=== PATIENT | male | born 1965 | race Caucasian/White ===

== ENCOUNTER 2024-04-03 00:36 | Inpatient (IN) ==
[2024-04-03] MEDS: Albuterol/Ipratropium NEB.SOL (2.5/0.5 MG) 3 ML NEB.SOLN INH ONE (01:37)
[2024-04-03] MEDS: methylPREDNISolone SOD SUCC 125 mg 2 ML VIAL IV ONE (01:37)
[2024-04-03 01:46] LABS: ABS Basophils 0.1 10^3/uL (0.0-0.1); ABS Eosinophils 0.1 10^3/uL (0.0-0.5); ABS Lymphocytes 1.7 10^3/uL (1.0-4.8); ABS Monocytes 0.3 10^3/uL (0.0-1.1); ABS Neutrophils 3.1 10^3/uL (1.5-7.6); Eosinophil % 1.2 %; Hematocrit 33.2 % (38-53); Hemoglobin 11.1 g/dL (13.2-16.3); Mean Corpuscular Hemoglobin 30.9 pg (27-33); Mean Corpuscular Hgb Conc 33.5 g/dL (31-36); Mean Corpuscular Volume 92.2 fL (80-97); Mean Platelet Volume 7.8 fL (7.5-11.2); Nucleated Red Blood Cells % 0.1 %/100WBC (0.0-0.8); Platelet Count 111 10^3/uL (150-450); Red Cell Distribution Width 16.5 % (12-17); White Blood Count 5.2 10^3/uL (3.6-10.2)
[2024-04-03 01:59] LABS: INR 1.25 (0.83-1.13)
[2024-04-03 02:30] LABS: Albumin 3.1 g/dL (3.2-5.2); Albumin/Globulin Ratio 1.1 (1-3); C Reactive Protein 14.67 mg/L (<8.01); Creatinine, Serum 0.68 mg/dL (0.67-1.17); Globulin 2.7 g/dL (2-4); Potassium 2.5 mmol/L (3.5-5.0); Total Bilirubin 1.2 mg/dL (0.2-1.0); Total Protein 5.8 g/dL (6.4-8.9); eGFR CKD-EPI 109.1 (>60)
[2024-04-03] MEDS: Morphine 4 MG/ML VIAL (1 ml) IV ONE (02:47)
[2024-04-03] MEDS: Potassium EFFERVES 25 meq TAB PO ONE (02:47)
[2024-04-03 03:12] LABS: High Sensitivity Troponin 1 Hr 10 pg/mL (<20)
[2024-04-03] MEDS: Lactated Ringers 1000 ml BAG 1,000 ML IV ONE ×3 (03:44→17:10)
[2024-04-03] MEDS: Iohexol 350 (CONTRAST) 500 ML MDV IV ONE (03:46)
[2024-04-03] MEDS: KCL 20 MEQ/100 ML IVPREMIX 20 MEQ/100 ML BAG IV SCH ×2 (06:00→17:10)
[2024-04-03 06:36] LABS: Magnesium 0.9 mg/dL (1.9-2.7)
[2024-04-03] MEDS: Lactated Ringers SEPSIS* BAG 3,130 ML IV ONE (06:38)
[2024-04-03] MEDS: CALCIUM GLUCONATE 1GM/50ML NS 1 GM/50 ML BAG IV ONE ×3 (06:44→14:47)
[2024-04-03] MEDS: cefTRIAXone 1 gm/50 mL D5W 1 GM/50 ML BAG IV SCH (07:03)
[2024-04-03] MEDS: Magnesium Sulf 4 GM/100 ML IV 4,000 MG/100 ML BAG IVPB ONE ×2 (08:23→14:47)
[2024-04-03 09:16] LABS: Calcium 5.8 mg/dL (8.6-10.3); Creatinine, Serum 0.56 mg/dL (0.67-1.17); Magnesium 0.7 mg/dL (1.9-2.7); Potassium 2.8 mmol/L (3.5-5.0); eGFR CKD-EPI 115.7 (>60)
[2024-04-03] MEDS: Albuterol/Ipratropium NEB.SOL (2.5/0.5 MG) 3 ML NEB.SOLN INH SCH (10:35)
[2024-04-03 10:52] LABS: Phosphorus 3.1 mg/dL (2.5-5.0)
[2024-04-03] MEDS: Albuterol HFA INHALER 8 gm MDI INH SCH (12:08)
[2024-04-03] MEDS ORDERED: Sulfur Hexaflouride MICROSPHR 25 MG VIAL ONE (12:31)
[2024-04-03] MEDS: Enoxaparin 40 MG/0.4 ML SYR SUBCUT SCH (13:05)
[2024-04-03 13:54] LABS: Calcium 6.4 mg/dL (8.6-10.3); Creatinine, Serum 0.69 mg/dL (0.67-1.17); Magnesium 1.4 mg/dL (1.9-2.7); Potassium 2.9 mmol/L (3.5-5.0); eGFR CKD-EPI 108.6 (>60)
[2024-04-03] MEDS: Potassium Chlor 20 meq TAB.ER PO ONE (14:46)
[2024-04-03 16:50] LABS: Calcium 9.1 mg/dL (8.6-10.3); Creatinine, Serum 0.67 mg/dL (0.67-1.17); Magnesium 1.6 mg/dL (1.9-2.7); Potassium 3.1 mmol/L (3.5-5.0); eGFR CKD-EPI 109.6 (>60)
[2024-04-03] MEDS: Sulfur Hexaflouride MICROSPHR 25 MG VIAL IV ONE (23:23)
[2024-04-04 00:13] LABS: Calcium 6.2 mg/dL (8.6-10.3); Creatinine, Serum 0.66 mg/dL (0.67-1.17); Magnesium 1.6 mg/dL (1.9-2.7); Potassium 3.2 mmol/L (3.5-5.0); eGFR CKD-EPI 110.1 (>60)
[2024-04-04] MEDS: CALCIUM GLUCONATE 1GM/50ML NS 1 GM/50 ML BAG IV ONE ×2 (01:12→09:52)
[2024-04-04] MEDS: Potassium Chloride LIQUID 20 MEQ/15 ML LIQUID PO ONE ×2 (01:12→09:08)
[2024-04-04] MEDS: Magnesium Sulf 4 GM/100 ML IV 4,000 MG/100 ML BAG IVPB ONE (01:12)
[2024-04-04 06:41] LABS: Calcium 6.5 mg/dL (8.6-10.3); Creatinine, Serum 0.56 mg/dL (0.67-1.17); Magnesium 2.1 mg/dL (1.9-2.7); Potassium 3.4 mmol/L (3.5-5.0); eGFR CKD-EPI 115.7 (>60)
[2024-04-04 07:26] LABS: Hematocrit 33.8 % (38-53); Hemoglobin 11.4 g/dL (13.2-16.3); Mean Corpuscular Hemoglobin 31.4 pg (27-33); Mean Corpuscular Hgb Conc 33.7 g/dL (31-36); Mean Corpuscular Volume 93.2 fL (80-97); Mean Platelet Volume 8.1 fL (7.5-11.2); Platelet Count 98 10^3/uL (150-450); Red Blood Count 3.63 10^6/uL (4.06-5.63); Red Cell Distribution Width 16.2 % (12-17); White Blood Count 8.6 10^3/uL (3.6-10.2)
[2024-04-04] MEDS: cefTRIAXone 1 gm/50 mL D5W 1 GM/50 ML BAG IV SCH (09:08)
[2024-04-04 16:22] LABS: Anion Gap 11 mmol/L (2-16); Blood Urea Nitrogen 7 mg/dL (6-24); CO2 Carbon Dioxide 31 mmol/L (22-32); Calcium 6.9 mg/dL (8.6-10.3); Chloride 95 mmol/L (101-111); Creatinine, Serum 0.71 mg/dL (0.67-1.17); Glucose 202 mg/dL (70-100); Sodium 137 mmol/L (135-145); eGFR CKD-EPI 107.7 (>60)
[2024-04-04 16:26] LABS: Potassium, Whole Blood 5.3 mmol/L (3.4-4.5)
[2024-04-04 16:35] LABS: Vitamin B12 522 pg/mL (180-914)
[2024-04-04] MEDS: Witch Hazel PAD JAR TOPICAL SCH (17:11)
[2024-04-04] MEDS: Lidocaine 4% CREAM (LMX) 5 GM TUBE TOPICAL ONE (17:11)
[2024-04-04] MEDS: CALCIUM GLUCONATE 1GM/50ML NS 1 GM/50 ML BAG IV SCH (18:21)
[2024-04-04] MEDS: Potassium Chlor 20 meq TAB.ER PO ONE (18:22)
[2024-04-05 07:11] LABS: Hematocrit 33.6 % (38-53); Hemoglobin 11.2 g/dL (13.2-16.3); Mean Corpuscular Hemoglobin 31.1 pg (27-33); Mean Corpuscular Hgb Conc 33.4 g/dL (31-36); Mean Corpuscular Volume 93.2 fL (80-97); Red Blood Count 3.61 10^6/uL (4.06-5.63); Red Cell Distribution Width 16.2 % (12-17); White Blood Count 8.7 10^3/uL (3.6-10.2)
[2024-04-05 07:38] LABS: Mean Platelet Volume 8.3 fL (7.5-11.2); Platelet Count 89 10^3/uL (150-450)
[2024-04-05 07:59] LABS: Calcium 6.8 mg/dL (8.6-10.3); Creatinine, Serum 0.63 mg/dL (0.67-1.17); Magnesium 1.3 mg/dL (1.9-2.7); Potassium 3.5 mmol/L (3.5-5.0); eGFR CKD-EPI 111.6 (>60)
[2024-04-05] MEDS: CALCIUM GLUCONATE 1GM/50ML NS 1 GM/50 ML BAG IV SCH ×2 (10:44→12:53)
[2024-04-05] MEDS: Potassium Chlor 20 meq TAB.ER PO ONE (12:52)
[2024-04-05] MEDS: Magnesium Sulf 4 GM/100 ML IV 4,000 MG/100 ML BAG IVPB ONE (12:52)
[2024-04-05] MEDS: Iohexol 300 (CONTRAST) 10 ML SDV IV ONE (13:04)
[2024-04-05] MEDS: Potassium Chlor 20 meq TAB.ER PO SCH (16:58)
[2024-04-05 18:45] LABS: AFP Tumor Marker 2.9 ng/mL (<8.4)
[2024-04-05 18:54] LABS: HCG Tumor Marker <0.6 IU/L (<1.4)
[2024-04-05] MEDS: Mometasone/Formoter 100/5 MDI INH SCH (19:23)
[2024-04-05] MEDS: Calcium Citrate 200 mg TAB PO SCH (22:03)
[2024-04-06 06:57] LABS: Hematocrit 35.3 % (38-53); Hemoglobin 11.7 g/dL (13.2-16.3); Mean Corpuscular Hemoglobin 31.1 pg (27-33); Mean Corpuscular Hgb Conc 33.2 g/dL (31-36); Mean Corpuscular Volume 93.7 fL (80-97); Mean Platelet Volume 8.5 fL (7.5-11.2); Platelet Count 98 10^3/uL (150-450); Red Blood Count 3.77 10^6/uL (4.06-5.63); Red Cell Distribution Width 16.3 % (12-17); White Blood Count 9.5 10^3/uL (3.6-10.2)
[2024-04-06 07:07] LABS: Calcium 7.5 mg/dL (8.6-10.3); Creatinine, Serum 0.69 mg/dL (0.67-1.17); Magnesium 1.7 mg/dL (1.9-2.7); eGFR CKD-EPI 108.6 (>60)
[2024-04-06] MEDS: SPIRIVA Respimat (tiotropium) 2.5 mcg/inh Inhaler INH SCH (07:41)
[2024-04-06] MEDS: Magnesium Chloride EC 64 mgTAB PO ONE (16:43)
[2024-04-06 16:46] LABS: Calcium 7.9 mg/dL (8.6-10.3); Creatinine, Serum 0.84 mg/dL (0.67-1.17); Potassium 3.8 mmol/L (3.5-5.0); eGFR CKD-EPI 102.3 (>60)
[2024-04-06] MEDS: Lactated Ringers 1000 ml BAG 1,000 ML IV SCH (17:04)
[2024-04-06] MEDS: Albuterol/Ipratropium NEB.SOL (2.5/0.5 MG) 3 ML NEB.SOLN INH PRN (22:56)
[2024-04-07 06:42] LABS: Calcium 7.7 mg/dL (8.6-10.3); Creatinine, Serum 0.66 mg/dL (0.67-1.17); Magnesium 1.5 mg/dL (1.9-2.7); Potassium 3.6 mmol/L (3.5-5.0); eGFR CKD-EPI 110.1 (>60)
[2024-04-07] MEDS: Lactated Ringers 1000 ml BAG 1,000 ML IV SCH ×3 (07:40→15:00)
[2024-04-07] MEDS ORDERED: Propofol 10 MG/ML 20 ML BTL ONE (10:52)
[2024-04-07] MEDS ORDERED: Lidocaine 2% PF 5 ML VIAL ONE ×2 (10:53→14:10)
[2024-04-07] MEDS ORDERED: Midazolam 2 mg/2 ml VIAL 1 mg/ml 2 ml VIAL (2 mg) ONE (10:53)
[2024-04-07] MEDS ORDERED: fentaNYL 250 mcg/5 ml 50 MCG/ML 5 ml VIAL (250 MCG) ONE (10:53)
[2024-04-07] MEDS ORDERED: Rocuronium 50 mg VIAL 10 mg/ml 5 ml VIAL (50 mg) ONE (10:53)
[2024-04-07] MEDS ORDERED: fentaNYL 100 mcg/2 ml 50 MCG/ML VIAL IV PRN (11:50)
[2024-04-07] MEDS ORDERED: Ondansetron 4 mg VIAL 2 MG/ML 2 ml VIAL IV PRN (11:50)
[2024-04-07] MEDS ORDERED: Naloxone 0.4 mg VIAL 0.4 mg/ml 1 ml VIAL IV PRN (11:50)
[2024-04-07] MEDS ORDERED: Lidocaine 1% VIAL 10 MG/ML 30 ML VIAL ONE (11:55)
[2024-04-07] MEDS ORDERED: Bupivacaine 0.25% SDV 30 ML ONE (11:55)
[2024-04-07] MEDS ORDERED: ceFAZolin 2 GM in NS PREMIX 2 GM/100 ML BAG IVPB ONE ×2 (12:00→12:27)
[2024-04-07] MEDS ORDERED: Dexamethasone IV 4 MG/ML VIAL 1 ml VIAL ONE (13:01)
[2024-04-07] MEDS ORDERED: Ondansetron 4 mg VIAL 2 MG/ML 2 ml VIAL ONE (13:01)
[2024-04-07] MEDS ORDERED: Acetaminophen IV 1 GM/100ML 1,000 MG/100 ML BAG IV ONE (13:06)
[2024-04-07] MEDS ORDERED: Phenylephrine 40 mcg/mL 10mL (400mcg) SYRINGE ONE (13:35)
[2024-04-07] MEDS ORDERED: Sevoflurane BOTTLE ONE (13:44)
[2024-04-07] MEDS ORDERED: Levalbuterol HFA INHALER MDI ONE (14:09)
[2024-04-07] MEDS: Buffered Lidocaine 1% SYRIN 1 ml INTRADERM ONE ×4 (14:57→14:59)
[2024-04-07] MEDS: ceFAZolin 2 GM/50 ML BAG IV ONE (15:05)
[2024-04-08 06:22] LABS: Calcium 8.1 mg/dL (8.6-10.3); Creatinine, Serum 0.79 mg/dL (0.67-1.17); Magnesium 1.4 mg/dL (1.9-2.7); Potassium 4.3 mmol/L (3.5-5.0); eGFR CKD-EPI 104.3 (>60)
[2024-04-08] MEDS: Morphine 2 MG/ML SYRINGE IV PRN (06:46)
[2024-04-08] MEDS: Albuterol HFA INHALER 8 gm MDI INH PRN (07:41)
[2024-04-08] MEDS: Magnesium Sulfate 2 gm BAG 2 GM/50 ML BAG IVPB ONE (08:23)
[2024-04-08 10:24] VITALS: BP 135/92
== END 2024-04-08 13:00 | disposition home or self-care (01) | DRG 710 ==
LOC: EDHOLD 00:36 → ED 00:36 → SUATTDRO 06:21 → MEDTELE 10:16 → SUATTDRO 04-04 09:58 → MEDTELE 04-06 11:00 → SSU 04-07 13:45
PROVIDERS: ADMIT Student in an Organized Health Care Education/Training Program; ATTEND Student in an Organized Health Care Education/Training Program